=== PATIENT | female | born 1990 | race Two or more races ===

== ENCOUNTER 2023-04-30 12:17 | Outpatient (CLI) | payer OTHER | END 2023-04-30 17:14 | disposition home or self-care (01) | LOC: PRENATAL 12:17 | PROVIDERS: ATTEND Obstetrics & Gynecology Maternal & Fetal Medicine | DX: O36.80X0 Pregnancy with inconclusive fetal viability, not applicable or unspecified (principal); Z36.9 Encounter for antenatal screening, unspecified; O09.519 Supervision of elderly primigravida, unspecified trimester; Z3A.12 12 weeks gestation of pregnancy ==

== ENCOUNTER 2023-07-07 12:02 | Outpatient (CLI) | payer OTHER | END 2023-07-07 12:04 | disposition home or self-care (01) | LOC: PRENATAL 12:02 | PROVIDERS: ATTEND Obstetrics & Gynecology Maternal & Fetal Medicine | DX: O35.3XX0 Maternal care for (suspected) damage to fetus from viral disease in mother, not applicable or unspecified (principal); O44.00 Complete placenta previa NOS or without hemorrhage, unspecified trimester; O09.519 Supervision of elderly primigravida, unspecified trimester; Z3A.22 22 weeks gestation of pregnancy ==

== ENCOUNTER → 2023-09-16 11:02 | Outpatient (CLI) | payer OTHER | END | disposition home or self-care (01) | LOC: PRENATAL 11:02 | PROVIDERS: ATTEND Obstetrics & Gynecology Maternal & Fetal Medicine | DX: O26.849 Uterine size-date discrepancy, unspecified trimester (principal); O36.8199 Decreased fetal movements, unspecified trimester, other fetus; O09.519 Supervision of elderly primigravida, unspecified trimester; O13.9 Gestational [pregnancy-induced] hypertension without significant proteinuria, unspecified trimester; Z3A.32 32 weeks gestation of pregnancy ==

== ENCOUNTER 2023-10-15 11:58 | Outpatient (CLI) | payer OTHER ==
[2023-10-15] MEDS ORDERED: PRENATAL TABLE1 EAC1 PO (19:21)
[2023-10-15] MEDS ORDERED: VAZALORE81 MG PO (19:22)
[2023-10-15] MEDS ORDERED: IRON236 MG PO (19:22)
== END 2023-10-15 11:59 | disposition home or self-care (01) ==
LOC: PRENATAL 11:58
PROVIDERS: ATTEND Obstetrics & Gynecology Maternal & Fetal Medicine
DX: O26.849 Uterine size-date discrepancy, unspecified trimester (principal); O36.8199 Decreased fetal movements, unspecified trimester, other fetus; O09.519 Supervision of elderly primigravida, unspecified trimester; O13.9 Gestational [pregnancy-induced] hypertension without significant proteinuria, unspecified trimester; Z3A.36 36 weeks gestation of pregnancy

== ENCOUNTER 2023-10-15 18:59 | Outpatient (CLI) | payer OTHER ==
[2023-10-15] MEDS ORDERED: PRENATAL TABLE1 EAC1 PO (19:21)
[2023-10-15] MEDS ORDERED: IRON236 MG PO (19:22)
[2023-10-15] MEDS ORDERED: VAZALORE81 MG PO (19:22)
[2023-10-15 20:32] LABS: HEMATOCRIT 33.4 % (36.0-45.00); HEMOGLOBIN 11.3 g/dL (12.0-15.00); MEAN CELL VOLUME 86.3 fL (80.00-100.00); MEAN CORPUSCULAR HEMOGLOBIN 29.2 pg (27.00-32.0); MEAN CORPUSCULAR HGB CONC 33.9 g/dl (32.0-36.0); PLATELET COUNT 295 K/uL (150-450); RED BLOOD COUNT 3.87 M/uL (4.00-6.00); RED CELL DISTRIBUTION WIDTH 14.8 % (11.5-14.5)
[2023-10-15 20:59] LABS: ALBUMIN 2.8 gm/dL (3.4-5.0); BILIRUBIN TOTAL 0.39 mg/dL (0.3-1.2); CALCIUM 8.9 mg/dL (8.5-10.1); CREATININE SERUM 0.44 mg/dL (0.55-1.02); GFR 162.72; GLOBULINA 3.7 G/DL (2.4-3.5); POTASSIUM 3.82 mEq/L (3.5-5.1); TOTAL PROTEIN 6.5 gm/dL (6.4-8.2); URIC ACID 2.1 mg/dL (2.5-7.5)
[2023-10-15 21:36] LABS: FIBRINOGEN 511 mg/dL (187.0-446.0); INR < 0.93; PARTIAL THROMBOPLASTIN TIME 29.7 SECONDS (22.0-34.0); PROTHROMBIN TIME 9.7 SECONDS (9.0-11.5)
[2023-10-15] MEDS ORDERED: RINGERS SOLUTION,LACTATED 1,000 ML IV SCH (23:15)
[2023-10-15 23:24] LABS: URINE APPEARANCE Cloudy; URINE BILIRRUBIN Negative (NEGATIVE); URINE BLOOD Negative; URINE COLOR Yellow; URINE GLUCOSE Negative (NEGATIVE); URINE LEUKOCYTE Trace; URINE NITRATE Negative; URINE PROTEIN Negative (NEGATIVE); URINE UROBILINOGEN 0.2 E.U./dl
[2023-10-15 23:28] LABS: URINE BACTERIA 1367.8 uL (0.0-1933); URINE EPITHELIAL CELLS 8.1 uL (0.0-38.8); URINE RBC 2.1 uL (0.0-20.8); URINE WBC 15.4 uL (0.0-23.2)
[2023-10-15 23:40] LABS: CREATININE URINE RANDOM 57.4 MG/DL (30-125)
[2023-10-16] MEDS ORDERED: FAMOTIDINE/PF 20 MG/2 ML VIAL IV SCH (04:20)
[2023-10-16] MEDS ORDERED: MORPHINE SULFATE 4 MG/ML VIAL IV ONE (04:30)
[2023-10-16] MEDS ORDERED: FLUCONAZOLE 150 MG TABLET PO ONE (04:30)
[2023-10-16] MEDS ORDERED: FAMOTIDINE/PF 20 MG/2 ML VIAL IV PUSH SCH (09:00)
== END 2023-10-16 13:32 | disposition home or self-care (01) ==
LOC: OBS/DEL 18:59
PROVIDERS: ATTEND Obstetrics & Gynecology
DX: O16.3 Unspecified maternal hypertension, third trimester (principal); O26.893 Other specified pregnancy related conditions, third trimester; Z3A.36 36 weeks gestation of pregnancy

== ENCOUNTER 2023-10-18 09:41 | Inpatient (IN) | payer OTHER ==
[~2023-10-18] VITALS: Ht 157.5 cm; Wt 103.0 kg
[~2023-10-18 09:41] MED LIST: IRON236 MG PO; PRENATAL TABLE1 EAC1 PO; VAZALORE81 MG PO
[2023-10-18] MEDS ORDERED: CITRIC ACID/SODIUM CITRATE 30 ML BLIST.PACK PO SCH (10:30)
[2023-10-18] MEDS ORDERED: RINGERS SOLUTION,LACTATED 1,000 ML IV SCH ×2 (10:30→13:00)
[2023-10-18] MEDS ORDERED: CEFAZOLIN SODIUM 1,000 MG VIAL IV SCH (10:30)
[2023-10-18] MEDS ORDERED: ERYTHROMYCIN BASE 3.5 GM OINT...G. OP ONE (11:16)
[2023-10-18] MEDS ORDERED: OXYTOCIN 10 UNITS/ML VIAL ONE ×2 (11:16→17:40)
[2023-10-18] MEDS ORDERED: MEPERIDINE HCL/PF 25 MG/ML VIAL IV PRN ×2 (12:30→18:15)
[2023-10-18] MEDS ORDERED: ONDANSETRON HCL 2 MG/ML VIAL IV PRN ×2 (12:30→13:00)
[2023-10-18] MEDS ORDERED: MORPHINE SULFATE 4 MG in 0.9 % SODIUM CHLORIDE 9 ML IV PRN (12:30)
[2023-10-18] MEDS ORDERED: IBUprofen 800 MG TABLET PO PRN (13:00)
[2023-10-18] MEDS ORDERED: OXYTOCIN 1,000 ML IV SCH (13:00)
[2023-10-18] MEDS ORDERED: ACETAMINOPHEN 325 MG TABLET PO PRN (13:00)
[2023-10-18] MEDS ORDERED: OxyCODONE HCL/APAP UD (PERCOCET) PO PRN (13:00)
[2023-10-18] MEDS ORDERED: OXYTOCIN 10 UNITS/ML VIAL IV ONE (13:30)
[2023-10-18] MEDS ORDERED: ERYTHROMYCIN BASE 1 GM TUBE OP ONE (13:30)
[2023-10-18] MEDS ORDERED: SIMETHICONE 125 MG CAPSULE PO SCH (18:00)
[2023-10-18] MEDS ORDERED: PROMETHAZINE HCL 25 MG/ML AMPUL IV PRN (18:15)
[2023-10-19 07:50] LABS: HEMATOCRIT 33.8 % (36.0-45.00); HEMOGLOBIN 11.1 g/dL (12.0-15.00); MEAN CELL VOLUME 85.5 fL (80.00-100.00); MEAN CORPUSCULAR HEMOGLOBIN 28.1 pg (27.00-32.0); MEAN CORPUSCULAR HGB CONC 32.9 g/dl (32.0-36.0); PLATELET COUNT 269 K/uL (150-450); RED BLOOD COUNT 3.95 M/uL (4.00-6.00)
[2023-10-19] MEDS ORDERED: OxyCODONE HCL/APAP UD (PERCOCET) PO PRN (12:18)
[2023-10-19] MEDS ORDERED: DOCUSATE SODIUM 100MG CAP PO SCH (12:31)
[2023-10-19] MEDS ORDERED: ENOXAPARIN SODIUM 40 MG/0.4 ML SYRINGE SUBCUTANEO SCH (12:44)
[2023-10-20] MEDS ORDERED: OxyCODONE HCL/APAP UD (PERCOCET) PO PRN (13:48)
[2023-10-20] MEDS ORDERED: IBUprofen 800 MG TABLET PO SCH (17:00)
[2023-10-21] MEDS ORDERED: DOCUSATE SODIUM 100MG CAP PO SCH (17:00)
== END 2023-10-22 20:20 | disposition home or self-care (01) | DRG 788 ==
LOC: LDR 09:41 → O/R 09:41 → OB/GYN 09:41 → O/R 12:33 → OB/GYN 13:49
PROVIDERS: Obstetrics & Gynecology; ADMIT Obstetrics & Gynecology; ATTEND Obstetrics & Gynecology
PROC: 4A1HXCZ Monitoring of Products of Conception, Cardiac Rate, External Approach (ICD-10-PCS; 2023-10-18)
PROC: 10D00Z1 Extraction of Products of Conception, Low, Open Approach (ICD-10-PCS; principal; 2023-10-18 11:00)
DX: O36.5930 Maternal care for other known or suspected poor fetal growth, third trimester, not applicable or unspecified (principal); O99.824 Streptococcus B carrier state complicating childbirth; O13.4 Gestational [pregnancy-induced] hypertension without significant proteinuria, complicating childbirth; Z3A.37 37 weeks gestation of pregnancy; Z37.0 Single live birth; Z20.822 Contact with and (suspected) exposure to COVID-19